=== PATIENT | male | born 1980 | race Caucasian/White ===

== ENCOUNTER 2024-09-06 14:23 | Inpatient (IN) | payer OTHER ==
[~2024-09-06] VITALS: Ht 177.8 cm; Wt 106.8 kg
[2024-09-06 15:19] LABS: BASOPHILS % (AUTO) 0.3 % (0.0-2.0); EOSINOPHILS % (AUTO) 2.1 % (1.0-6.0); HEMATOCRIT 46.3 % (41-53); HEMOGLOBIN 15.7 g/dL (13.5-17.5); LYMPHOCYTES # (AUTO) 1.8 K/uL (1.0-4.8); LYMPHOCYTES % (AUTO) 21.8 % (22.0-44.0); MEAN CORPUSCULAR HEMOGLOBIN 30.7 pg (26.0-34.0); MEAN CORPUSCULAR HGB CONC 33.9 G/dL (31.0-37.0); MEAN CORPUSCULAR VOLUME 91 fL (80-100); MONOCYTES # (AUTO) 0.6 K/uL (0.1-1.0); MONOCYTES % (AUTO) 7.2 % (2.0-9.0); NEUTROPHILS # (AUTO) 5.6 K/uL (1.8-7.7); NEUTROPHILS % (AUTO) 68.6 % (40.0-70.0); PLATELET COUNT (AUTO) 237 K/uL (150-450); RED BLOOD CELL COUNT(AUTO) 5.11 MIL/uL (4.50-5.90); RED CELL DISTRIBUTION WIDTH 12.6 % (11.5-14.5); WHITE BLOOD COUNT (AUTO) 8.1 K/uL (4.5-11.0)
[2024-09-06 15:25] LABS: ERYTHROCYTE SEDIMENTATION RATE 4 MM/HR (0-15)
[2024-09-06 15:31] LABS: ALBUMIN 3.9 g/dL (3.4-5.0); BILIRUBIN,DIRECT 0.1 mg/dL (0.00-0.20); BILIRUBIN,TOTAL 0.5 mg/dL (0.1-1.0); C-REACTIVE PROTEIN QUANT 0.73 mg/dL (0.00-0.30); TOTAL PROTEIN, SERUM 7.3 g/dL (6.4-8.2)
[2024-09-06 16:05] LABS: ANION GAP 9 mmol/L (8-16); CALCIUM, TOTAL 9.3 mg/dL (8.8-10.5); CARBON DIOXIDE 27 mmol/L (22-29); CHLORIDE 103 mmol/L (98-107); GLOMERULAR FILTR. RATE CALC > 60 mL/min (>60); GLUCOSE,RANDOM 100 mg/dL (70-110); POTASSIUM 4.4 mmol/L (3.5-5.1); SODIUM SERUM 139 mmol/L (136-145); UREA NITROGEN, BLOOD 11 mg/dL (7-18)
[2024-09-06] MEDS: VANCOMYCIN 1.5 GM/WATER(PEG) 300 ML IV ONE (17:49)
[2024-09-06] MEDS ORDERED: ZOLPIDEM TARTRATE 5 MG TABLET PO PRN (21:45)
[2024-09-06] MEDS ORDERED: ONDANSETRON HCL 4 MG/2 ML VIAL IVP PRN (21:45)
[2024-09-06] MEDS ORDERED: ALBUTEROL SULFATE 2.5 MG/0.5 ML NEB SOLUTION NEB PRN (21:45)
[2024-09-06] MEDS ORDERED: BISACODYL 10 MG RECTAL RECTAL SUPPOSITORY PR PRN (21:45)
[2024-09-06] MEDS ORDERED: MAGNESIUM HYDROXIDE SUSPENSION 30 ML UDCUP PO PRN (21:45)
[2024-09-06] MEDS ORDERED: ACETAMINOPHEN 325 MG TABLET PO PRN (21:45)
[2024-09-06] MEDS ORDERED: MORPHINE SULFATE 2 MG/ML SYRINGE IVP PRN (21:45)
[2024-09-06] MEDS ORDERED: IPRATROPIUM BROMIDE 0.5 MG/2.5 ML NEB SOLUTION NEB PRN (21:45)
[2024-09-06 23:18] VITALS: BP 142/82; PULSE 82; RESP 18; TEMP 98.1; O2SAT 99
[2024-09-06] MEDS: HYDROCODONE/ACETAMINOPHEN 5-325 MG TABLET PO PRN (23:24)
[2024-09-06] MEDS: HEPARIN SODIUM,PORCINE 5,000 UNITS/ML VIAL SQ SCH (23:26)
[2024-09-07] MEDS: DiphenhydrAMINE HCL 50 MG/ML VIAL IVP PRN (00:21)
[2024-09-07 04:57] VITALS: BP 120/83; PULSE 68; RESP 18; TEMP 97.9; O2SAT 99
[2024-09-07] MEDS ORDERED: VANCOMYCIN 1.25 GM/WATER(PEG) 250 ML IV SCH (08:00)
[2024-09-07] MEDS: PANTOPRAZOLE SODIUM 40 MG DR TABLET PO SCH (08:08)
[2024-09-07] MEDS: VANCOMYCIN HCL 1.25 GM in DEXTROSE 5%-WATER 250 ML IV SCH (08:09)
[2024-09-07 08:16] VITALS: BP 118/78; PULSE 56; RESP 18; TEMP 97.5; O2SAT 96
[2024-09-07 08:36] LABS: ANION GAP 7 mmol/L (8-16); CALCIUM, TOTAL 8.8 mg/dL (8.8-10.5); CARBON DIOXIDE 28 mmol/L (22-29); CHLORIDE 106 mmol/L (98-107); CREATININE 1.01 mg/dL (0.60-1.30); GLOMERULAR FILTR. RATE CALC > 60 mL/min (>60); GLUCOSE,RANDOM 91 mg/dL (70-110); POTASSIUM 4.2 mmol/L (3.5-5.1); SODIUM SERUM 141 mmol/L (136-145); UREA NITROGEN, BLOOD 9 mg/dL (7-18)
[2024-09-07] MEDS ORDERED: 0.9% SODIUM CHLORIDE 10 ML SYRINGE IVP ONE (17:48)
[2024-09-07] MEDS ORDERED: IOHEXOL 350 MG/ML 100 ML VIAL ONE (17:48)
[2024-09-07] MEDS ORDERED: SODIUM CHLORIDE 0.9% 100 ML ONE (17:48)
[2024-09-07 19:46] VITALS: BP 119/82; PULSE 68; RESP 18; TEMP 98.1; O2SAT 97
[2024-09-08] MEDS: VANCOMYCIN 1GM/WATER(PEG/NADA) 200 ML IV SCH (00:50)
[2024-09-08 06:31] VITALS: BP 112/87; PULSE 61; RESP 19; TEMP 98.1; O2SAT 97
[2024-09-08 09:32] LABS: ANION GAP 7 mmol/L (8-16); CARBON DIOXIDE 30 mmol/L (22-29); CHLORIDE 104 mmol/L (98-107); CREATININE 0.92 mg/dL (0.60-1.30); GLOMERULAR FILTR. RATE CALC > 60 mL/min (>60); GLUCOSE,RANDOM 83 mg/dL (70-110); POTASSIUM 4.2 mmol/L (3.5-5.1); SODIUM SERUM 141 mmol/L (136-145); UREA NITROGEN, BLOOD 12 mg/dL (7-18)
[2024-09-08] MEDS: ETHYL ALCOHOL 62% ANTISEPTIC NASAL SANITIZER 0.6 ML AMPUL NASAL ONE (12:45)
[2024-09-08] MEDS: CHLORHEXIDINE GLUCONATE 2% TOWELETTE [2'S/6'S] TP ONE (12:45)
[2024-09-08 20:35] VITALS: BP 119/85; PULSE 83; RESP 20; TEMP 98.2; O2SAT 94
[2024-09-08] MEDS: OxyCODONE HCL/ACETAMINOPHEN 10-325 MG TABLET PO PRN (20:58)
[2024-09-08] MEDS ORDERED: SODIUM CHLORIDE 0.9% 250 ML IV ONE (23:16)
[2024-09-09] MEDS: ETHYL ALCOHOL 62% ANTISEPTIC NASAL SANITIZER 0.6 ML AMPUL NASAL ONE (04:37)
[2024-09-09] MEDS: RINGERS SOLUTION,LACTATED 1,000 ML IV ONE (04:37)
[2024-09-09] MEDS: CHLORHEXIDINE GLUCONATE 2% TOWELETTE [2'S/6'S] TP ONE (04:51)
[2024-09-09 05:07] VITALS: BP 125/92; PULSE 80; RESP 20; TEMP 98.1; O2SAT 95
[2024-09-09] MEDS ORDERED: RINGERS SOLUTION,LACTATED 1,000 ML IV ONE (05:18)
[2024-09-09] MEDS ORDERED: BUPIVACAINE HCL/PF 0.5% 30 ML VIAL ONE (05:50)
[2024-09-09] MEDS ORDERED: IBUPROFEN 800 MG TABLET PO PRN (06:45)
[2024-09-09] MEDS ORDERED: ACETAMINOPHEN 500 MG TABLET PO PRN (06:45)
[2024-09-09] MEDS ORDERED: HYDROmorphone HCL 2 MG/ML SYRINGE IVP PRN (07:00)
[2024-09-09] MEDS ORDERED: MEPERIDINE-PF 25 MG/ML VIAL IVP PRN (07:00)
[2024-09-09] MEDS ORDERED: FentaNYL CITRATE PF 100 MCG/2 ML VIAL IVP PRN (07:00)
[2024-09-09] MEDS: HYDROCODONE/ACETAMINOPHEN 5-325 MG TABLET PO PRN (08:28)
[2024-09-09] MEDS ORDERED: ONDANSETRON HCL 4 MG/2 ML VIAL ONE (12:00)
[2024-09-09] MEDS ORDERED: FentaNYL CITRATE PF 100 MCG/2 ML VIAL ONE (12:00)
[2024-09-09] MEDS ORDERED: PROPOFOL 1% 20 ML VIAL IVP ONE (12:00)
[2024-09-09] MEDS ORDERED: MIDAZOLAM HCL 2 MG/2 ML VIAL ONE (12:00)
[2024-09-09] MEDS ORDERED: ROCURONIUM BROMIDE 10 MG/ML 5 ML VIAL ONE (12:00)
[2024-09-09] MEDS ORDERED: LIDOCAINE/PF 2% 5 ML VIAL ONE (12:00)
[2024-09-09] MEDS ORDERED: SUGAMMADEX SODIUM 200 MG/2 ML VIAL IVP ONE (12:00)
[2024-09-09 19:45] VITALS: BP 126/81; PULSE 81; RESP 18; TEMP 97.9; O2SAT 96
[2024-09-09] MEDS: OXYGEN THERAPY IH SCH (20:00)
[2024-09-10 04:25] VITALS: BP 128/93; PULSE 69; RESP 18; TEMP 97.3; O2SAT 95
[2024-09-10 07:18] VITALS: BP_SYST 107; BP_SYST 90; BP_DIAS 54; BP_DIAS 65; PULSE 64; PULSE 65; RESP 20; TEMP 98.2; O2SAT 100
[2024-09-10 07:44] LABS: ANION GAP 4 mmol/L (8-16); CALCIUM, TOTAL 8.9 mg/dL (8.8-10.5); CARBON DIOXIDE 32 mmol/L (22-29); CHLORIDE 104 mmol/L (98-107); CREATININE 0.88 mg/dL (0.60-1.30); GLOMERULAR FILTR. RATE CALC > 60 mL/min (>60); GLUCOSE,RANDOM 101 mg/dL (70-110); POTASSIUM 3.9 mmol/L (3.5-5.1); SODIUM SERUM 140 mmol/L (136-145); UREA NITROGEN, BLOOD 16 mg/dL (7-18)
[2024-09-10 12:03] LABS: BASOPHILS % (AUTO) 1.4 % (0.0-2.0); EOSINOPHILS % (AUTO) 3.6 % (1.0-6.0); HEMATOCRIT 44.5 % (41-53); HEMOGLOBIN 15.2 g/dL (13.5-17.5); LYMPHOCYTES # (AUTO) 2.4 K/uL (1.0-4.8); LYMPHOCYTES % (AUTO) 43.5 % (22.0-44.0); MEAN CORPUSCULAR HEMOGLOBIN 30.7 pg (26.0-34.0); MEAN CORPUSCULAR HGB CONC 34.2 G/dL (31.0-37.0); MEAN CORPUSCULAR VOLUME 90 fL (80-100); MONOCYTES # (AUTO) 0.4 K/uL (0.1-1.0); MONOCYTES % (AUTO) 7.4 % (2.0-9.0); NEUTROPHILS # (AUTO) 2.4 K/uL (1.8-7.7); NEUTROPHILS % (AUTO) 44.1 % (40.0-70.0); PLATELET COUNT (AUTO) 240 K/uL (150-450); RED BLOOD CELL COUNT(AUTO) 4.96 MIL/uL (4.50-5.90); RED CELL DISTRIBUTION WIDTH 12.3 % (11.5-14.5); WHITE BLOOD COUNT (AUTO) 5.5 K/uL (4.5-11.0)
[2024-09-10] MEDS: HYDROCODONE/ACETAMINOPHEN 5-325 MG TABLET PO PRN (18:53)
[2024-09-10 19:56] VITALS: BP 119/84; PULSE 89; RESP 19; TEMP 98.4; O2SAT 95
[2024-09-11 04:00] VITALS: BP 116/84; PULSE 68; RESP 18; TEMP 98; O2SAT 95
[2024-09-11 07:41] VITALS: BP 133/90; PULSE 71; RESP 18; TEMP 98.1; O2SAT 100
[2024-09-11 08:17] LABS: ANION GAP 7 mmol/L (8-16); CALCIUM, TOTAL 9.1 mg/dL (8.8-10.5); CARBON DIOXIDE 30 mmol/L (22-29); CHLORIDE 103 mmol/L (98-107); CREATININE 0.93 mg/dL (0.60-1.30); GLOMERULAR FILTR. RATE CALC > 60 mL/min (>60); GLUCOSE,RANDOM 92 mg/dL (70-110); SODIUM SERUM 140 mmol/L (136-145); UREA NITROGEN, BLOOD 15 mg/dL (7-18)
[2024-09-11 23:43] VITALS: BP 156/94; PULSE 90; RESP 20; TEMP 97.7; O2SAT 99
[2024-09-12 07:36] LABS: ANION GAP 4 mmol/L (8-16); CALCIUM, TOTAL 8.9 mg/dL (8.8-10.5); CARBON DIOXIDE 29 mmol/L (22-29); CHLORIDE 106 mmol/L (98-107); CREATININE 0.84 mg/dL (0.60-1.30); GLOMERULAR FILTR. RATE CALC > 60 mL/min (>60); GLUCOSE,RANDOM 87 mg/dL (70-110); POTASSIUM 3.9 mmol/L (3.5-5.1); SODIUM SERUM 139 mmol/L (136-145); UREA NITROGEN, BLOOD 15 mg/dL (7-18)
[2024-09-12 08:07] VITALS: BP 121/92; PULSE 71; RESP 18; TEMP 97.9; O2SAT 96
[2024-09-12] MEDS ORDERED: SULF-301 PO (09:48)
[2024-09-12] MEDS ORDERED: ACET-2247 PO (09:50)
[2024-09-12] MEDS ORDERED: IBUP-1506 PO (09:51)
[2024-09-12] MEDS ORDERED: MAGN-169 PO (09:52)
[2024-09-12] MEDS: SULFAMETHOX/TRIMETH DS 800-160 MG/TABLET PO SCH (11:17)
== END 2024-09-12 12:00 | DRG 572 ==
LOC: EMS 14:23 → EDH 21:45 → 6S 22:42
PROVIDERS: ADMIT Hospitalist; ATTEND Hospitalist
PROC: 0JBQ0ZZ Excision of Right Foot Subcutaneous Tissue and Fascia, Open Approach (ICD-10-PCS; principal; 2024-09-09 06:25)
DX: L03.115 Cellulitis of right lower limb (principal); K21.9 Gastro-esophageal reflux disease without esophagitis; E66.9 Obesity, unspecified; G89.29 Other chronic pain; L02.415 Cutaneous abscess of right lower limb; Z88.0 Allergy status to penicillin; Z68.33 Body mass index [BMI] 33.0-33.9, adult
CPT/HCPCS: 73701; 80048; 80076; 80202; 85025; 85651; 86140; 87040; 87070; 87075; 87081; 87186; 87205; 99285; J1200; J1644; J2250; J2405; J2704; J3010; J3490; J7050; J7060; J7120